=== PATIENT | male | born 1945 | race Caucasian/White ===

== ENCOUNTER → 2023-01-21 | Outpatient (REF) | payer MEDICARE, MEDICAID, OTHER ==
[~2023-01-21] MED LIST: ACET-907 PO; ALBU8.5H INH; ALLO300T2 PO; ATOR40TA75 PO; BISA10SU PR; BREO1INH INH; DOCU100C16 PO; FINA5TAB2 PO; FLAR0.1S OD; FLEEENE12 PR; FLOM0.4C39 PO; FURO40TA2 PO; GABA-282 PO; INSU100V13 SC; INSUHUMDS SC; IPRA0.00 INH; JARD1TAB PO; METF500T13 PO; MILKSUS3 PO; MIRA1POW3 PO; PANT40TA29 PO; REST0.05 OU; TRAZ1TAB10 PO; VITA100093 PO; XALA0.007 OU; [UNRECOGNIZED DRUG - CODE] PO; [UNRECOGNIZED DRUG - CODE] TOP
[2023-01-21 07:55] LABS: HEMATOCRIT 30.6 % (42.0-52.0); HEMOGLOBIN 9.4 g/dl (13.5-17.5); MEAN CORPUSCULAR HEMOGLOBIN 25.5 pg (27.0-33.0); MEAN CORPUSCULAR HGB CONC 30.7 g/dl (32.0-36.5); MEAN CORPUSCULAR VOLUME 83.2 fl (80.0-96.0); PLATELET COUNT, AUTOMATED 328 10^3/uL (150-450); RED BLOOD COUNT 3.68 10^6/uL (4.30-6.10); WHITE BLOOD COUNT 9.5 10^3/uL (4.0-10.0)
[2023-01-21 08:31] LABS: ALBUMIN 2.6 G/DL (3.2-5.2); ALKALINE PHOSPHATASE 256 U/L (46-116); ALT/SGPT 52 U/L (7.0-40); AST/SGOT 16 U/L (<34); BILIRUBIN,TOTAL 0.6 MG/DL (0.3-1.2); BLOOD UREA NITROGEN 19 MG/DL (9-23); CARBON DIOXIDE LEVEL 31 MMOL/L (20-31); CHLORIDE LEVEL 104 MMOL/L (98-107); CHOLESTEROL LEVEL 73 MG/DL (<200); CHOLESTEROL RISK RATIO 2.13 (<5); CREATININE FOR GFR 0.72 MG/DL (0.70-1.30); GLOMERULAR FILTRATION RATE > 60.0 (>42); GLUCOSE, FASTING 88 MG/DL (74-106); HDL CHOLESTEROL 34.2 MG/DL (>40); LDL CHOLESTEROL 29.2 MG/DL (<100); NON-HDL-C 38.8 MG/DL; POTASSIUM SERUM 3.8 MMOL/L (3.5-5.1); SODIUM LEVEL 139 MMOL/L (136-145); TOTAL PROTEIN 5.7 G/DL (5.7-8.2); TRIGLYCERIDES LEVEL 48 MG/DL (<150)
[2023-01-21 08:35] LABS: HEMOGLOBIN A1c 6.7 % (4.0-6.0)
== END ==
LOC: SKLAB2 07:00
PROVIDERS: ATTEND Internal Medicine
DX: E11.9 Type 2 diabetes mellitus without complications (principal)

== ENCOUNTER → 2023-01-27 | Outpatient (REF) | payer MEDICARE, MEDICAID ==
[~2023-01-27] MED LIST changes: +DOXY-444 PO; +LEVO1TAB40 PO; +PRED10TA2 PO; +PRED20TA PO
== END ==
LOC: SKLAB2 21:08
PROVIDERS: ATTEND Internal Medicine
DX: R09.89 Other specified symptoms and signs involving the circulatory and respiratory systems (principal); R05.9 Cough, unspecified; R06.2 Wheezing

== ENCOUNTER 2023-01-28 14:49 | Inpatient (IN) | payer MEDICAID, MEDICARE, OTHER ==
[~2023-01-28] VITALS: Ht 167.6 cm; Wt 127.2 kg
[2023-01-28 15:40] LABS: BASO # 0.1 10^3/uL (0.0-0.2); BASO % 0.7 % (0.0-1.0); EOS # 0.3 10^3/uL (0.0-0.5); EOS % 3.3 % (0.0-3.0); HEMATOCRIT 35.2 % (42.0-52.0); HEMOGLOBIN 10.6 g/dl (13.5-17.5); LYMPH # 1.6 10^3/uL (1.5-5.0); LYMPH % 18.5 % (24.0-44.0); MEAN CORPUSCULAR HEMOGLOBIN 25.1 pg (27.0-33.0); MEAN CORPUSCULAR HGB CONC 30.1 g/dl (32.0-36.5); MEAN CORPUSCULAR VOLUME 83.4 fl (80.0-96.0); MONO % 11.3 % (2.0-8.0); NEUTROPHILS # 5.5 10^3/uL (1.5-8.5); NEUTROPHILS % 65.4 % (36.0-66.0); PLATELET COUNT, AUTOMATED 411 10^3/uL (150-450); RED BLOOD COUNT 4.22 10^6/uL (4.30-6.10); WHITE BLOOD COUNT 8.4 10^3/uL (4.0-10.0)
[2023-01-28] MEDS ORDERED: methylPREDNISolone 125MG 2ML VIAL IV ONE (15:50)
[2023-01-28 15:52] LABS: VENOUS HCO3 34.9 MMOL/L (23.0-27.0); VENOUS O2 SATURATION 61.2 % (60.0-80.0); VENOUS PARTIAL PRESSURE CO2 66.4 mmHg (38.0-50.0); VENOUS PARTIAL PRESSURE O2 35.4 mmHg (30.0-50.0); VENOUS PH 7.338 UNITS (7.330-7.430); VENOUS STANDARD HCO3 30.1 MMOL/L; VENOUS TOTAL CO2 36.9 MMOL/L (24.0-28.0)
[2023-01-28] MEDS: IPRATROPIUM 0.5MG/ALBUTEROL 2.5MG INH SOL UD 3ML (DUONEB) NEB SCH ×3 (15:52→16:20)
[2023-01-28 16:00] LABS: ALBUMIN 2.7 G/DL (3.2-5.2); ALKALINE PHOSPHATASE 242 U/L (46-116); ALT/SGPT 25 U/L (7.0-40); AST/SGOT 30 U/L (<34); BILIRUBIN,DIRECT 0.2 MG/DL (<0.4); BILIRUBIN,TOTAL 0.4 MG/DL (0.3-1.2); BLOOD UREA NITROGEN 14 MG/DL (9-23); CALCIUM LEVEL 9.4 MG/DL (8.3-10.6); CARBON DIOXIDE LEVEL 34 MMOL/L (20-31); CHLORIDE LEVEL 101 MMOL/L (98-107); CREATININE FOR GFR 0.81 MG/DL (0.70-1.30); GLOMERULAR FILTRATION RATE > 60.0 (>42); GLUCOSE, FASTING 110 MG/DL (74-106); POTASSIUM SERUM 3.4 MMOL/L (3.5-5.1); SODIUM LEVEL 141 MMOL/L (136-145); TOTAL PROTEIN 6.8 G/DL (5.7-8.2)
[2023-01-28 16:03] LABS: THYROID STIMULATING HORMONE 0.586 uIU/ML (0.55-4.78)
[2023-01-28 16:06] LABS: ABG BASE EXCESS 6.2 (-2.0-2.0); ABG HCO3 32.6 MMOL/L (22.0-26.0); ABG O2 SATURATION 96.9 % (95.0-99.0); ABG PARTIAL PRESSURE CO2 56.2 mmHg (35.0-45.0); ABG PARTIAL PRESSURE O2 89.1 mmHg (75.0-100.0); ABG TOTAL CO2 34.3 MMOL/L (23.0-31.0); ABG pH (ARTERIAL) 7.381 UNITS (7.350-7.450)
[2023-01-28] MEDS ORDERED: LevoFLOXacin 750 MG TABLET PO ONE (18:20)
[2023-01-28] MEDS ORDERED: MED REC IN PROGRESS XX SCH (19:10)
[2023-01-28] MEDS ORDERED: POTASSIUM CHLORIDE 10MEQ SR TABLET PO ONE (20:05)
[2023-01-28] MEDS ORDERED: ACETAMINOPHEN TAB 650MG DOSE (2X325MG) PO PRN (20:05)
[2023-01-28] MEDS: LEVEMIR (INSULIN DETEMIR) 1 UNITS/0.01ML SC SCH (21:00)
[2023-01-28] MEDS: LATANOPROST 0.005% OPHTH SOLN 2.5 ML OU SCH (21:00)
[2023-01-28] MEDS ORDERED: ALLO300T2 PO (22:58)
[2023-01-28] MEDS ORDERED: BREO1INH INH (23:00)
[2023-01-28] MEDS ORDERED: ATOR40TA75 PO (23:00)
[2023-01-28] MEDS ORDERED: INSU100V13 SC (23:00)
[2023-01-28] MEDS ORDERED: JARD1TAB PO (23:00)
[2023-01-28] MEDS ORDERED: FINA5TAB2 PO (23:00)
[2023-01-28] MEDS ORDERED: MIRA1POW3 PO (23:03)
[2023-01-28] MEDS ORDERED: PANT40TA29 PO (23:03)
[2023-01-28] MEDS ORDERED: XALA0.007 OU (23:03)
[2023-01-28] MEDS ORDERED: IPRA0.00 INH (23:16)
[2023-01-28] MEDS ORDERED: MILKSUS3 PO (23:16)
[2023-01-28] MEDS ORDERED: FLEEENE12 PR (23:16)
[2023-01-28] MEDS ORDERED: GABA-282 PO (23:16)
[2023-01-28] MEDS ORDERED: METF500T13 PO (23:16)
[2023-01-28] MEDS ORDERED: INSUHUMDS SC (23:16)
[2023-01-28] MEDS ORDERED: ALBU8.5H INH (23:16)
[2023-01-28] MEDS ORDERED: [UNRECOGNIZED DRUG - CODE] TOP (23:16)
[2023-01-28] MEDS ORDERED: ACET-907 PO (23:16)
[2023-01-28] MEDS ORDERED: REST0.05 OU (23:16)
[2023-01-28] MEDS ORDERED: FLOM0.4C39 PO (23:16)
[2023-01-28] MEDS ORDERED: FLAR0.1S OD (23:16)
[2023-01-28] MEDS ORDERED: FURO40TA2 PO (23:16)
[2023-01-28] MEDS ORDERED: [UNRECOGNIZED DRUG - CODE] PO (23:16)
[2023-01-28] MEDS ORDERED: BISA10SU PR (23:16)
[2023-01-28] MEDS ORDERED: DOCU100C16 PO (23:16)
[2023-01-28] MEDS ORDERED: VITA100093 PO (23:16)
[2023-01-28] MEDS ORDERED: TRAZ1TAB10 PO (23:16)
[2023-01-28] MEDS ORDERED: HOME MED LIST COMPLETE! XX SCH (23:20)
[2023-01-28] MEDS ORDERED: BISACODYL 10MG SUPP PR PRN (23:45)
[2023-01-28] MEDS ORDERED: MOM 30ML SUSPENSION UDC PO PRN (23:45)
[2023-01-29] VITALS (7 sets, daily range): BP systolic 129–178; BP diastolic 60–84; TEMP 96.8–97.7; O2SAT 95–98
[2023-01-29] MEDS: ATORVASTATIN 20 MG TAB PO SCH ×2 (00:19→21:10)
[2023-01-29] MEDS: GABAPENTIN 300 MG CAP PO SCH ×3 (00:20→21:10)
[2023-01-29] MEDS: DOCUSATE SODIUM 100MG CAPSULE PO SCH ×3 (00:20→21:10)
[2023-01-29] MEDS ORDERED: TAMSULOSIN 0.4 MG CAP PO ONE (01:00)
[2023-01-29] MEDS ORDERED: FUROSEMIDE 40 MG TAB PO ONE (01:00)
[2023-01-29] MEDS: IPRATROPIUM 0.5MG/ALBUTEROL 2.5MG INH SOL UD 3ML (DUONEB) NEB SCH ×4 (02:09→20:23)
[2023-01-29] MEDS: methylPREDNISolone 40MG 1ML VIAL IV SCH ×2 (04:18→16:37)
[2023-01-29] MEDS ORDERED: hydrALAZINE 20MG/ML 1ML VIAL IV ONE (05:00)
[2023-01-29 06:52] LABS: HEMATOCRIT 36.7 % (42.0-52.0); MEAN CORPUSCULAR HEMOGLOBIN 24.8 pg (27.0-33.0); MEAN CORPUSCULAR VOLUME 82.8 fl (80.0-96.0); PLATELET COUNT, AUTOMATED 428 10^3/uL (150-450); RED BLOOD COUNT 4.43 10^6/uL (4.30-6.10); WHITE BLOOD COUNT 6.1 10^3/uL (4.0-10.0)
[2023-01-29 07:02] LABS: VENOUS BASE EXCESS 4.3 (-2.0-2.0); VENOUS HCO3 30.2 MMOL/L (23.0-27.0); VENOUS O2 SATURATION 97.8 % (60.0-80.0); VENOUS PARTIAL PRESSURE CO2 50.9 mmHg (38.0-50.0); VENOUS PARTIAL PRESSURE O2 103.1 mmHg (30.0-50.0); VENOUS PH 7.391 UNITS (7.330-7.430); VENOUS STANDARD HCO3 28.3 MMOL/L; VENOUS TOTAL CO2 31.8 MMOL/L (24.0-28.0)
[2023-01-29 07:08] LABS: ALBUMIN 2.8 G/DL (3.2-5.2); ALKALINE PHOSPHATASE 237 U/L (46-116); ALT/SGPT 13 U/L (7.0-40); AST/SGOT 21 U/L (<34); BILIRUBIN,TOTAL 0.5 MG/DL (0.3-1.2); BLOOD UREA NITROGEN 18 MG/DL (9-23); CALCIUM LEVEL 8.3 MG/DL (8.3-10.6); CARBON DIOXIDE LEVEL 34 MMOL/L (20-31); CHLORIDE LEVEL 103 MMOL/L (98-107); CREATININE FOR GFR 0.74 MG/DL (0.70-1.30); GLOMERULAR FILTRATION RATE > 60.0 (>42); GLUCOSE, FASTING 209 MG/DL (74-106); MAGNESIUM LEVEL 1.6 MG/DL (1.8-2.4); POTASSIUM SERUM 3.9 MMOL/L (3.5-5.1); SODIUM LEVEL 144 MMOL/L (136-145); TOTAL PROTEIN 6.8 G/DL (5.7-8.2)
[2023-01-29] MEDS: ADVAIR HFA 115/21MCG INHALER INH SCH ×2 (07:23→20:23)
[2023-01-29] MEDS: allopurinoL 300 MG TAB PO SCH (08:13)
[2023-01-29] MEDS: TAMSULOSIN 0.4 MG CAP PO SCH (08:13)
[2023-01-29] MEDS: PANTOPRAZOLE 40MG TAB (PROTONIX) PO SCH (08:13)
[2023-01-29] MEDS: FINASTERIDE 5MG TAB PO SCH (08:13)
[2023-01-29] MEDS: FUROSEMIDE 40 MG TAB PO SCH ×2 (08:13→16:37)
[2023-01-29] MEDS: ENOXAPARIN 40MG/0.4ML SYRINGE (J1650 PER 10MG) SC SCH (08:13)
[2023-01-29] MEDS: VITAMIN D 1,000 INTERNATIONAL UNITS TABLET PO SCH (08:13)
[2023-01-29] MEDS: MIRALAX *UNIT DOSE* 17GM PACKET PO SCH (09:00)
[2023-01-29] MEDS ORDERED: GLUCOSE 4GM CHEW TABLET PO PRN (09:40)
[2023-01-29] MEDS ORDERED: DEXTROSE 50% 50ML SYRINGE IV PRN (09:40)
[2023-01-29] MEDS ORDERED: GLUCAGON INJ 1MG VIAL SC PRN (09:40)
[2023-01-29] MEDS: INSULIN LISPRO (NovoLOG) PER UNIT SC SCH ×3 (12:59→21:11)
[2023-01-29] MEDS ORDERED: LevoFLOXacin IV 750 MG in IV 1 EA IV SCH (18:00)
[2023-01-29 18:08] LABS: C REACTIVE PROTEIN QUANTITATIV 16.7 MG/DL (<1.0)
[2023-01-29 18:21] LABS: PROCALCITONIN 0.18 ng/ml
[2023-01-29] MEDS: LATANOPROST 0.005% OPHTH SOLN 2.5 ML OU SCH (21:11)
[2023-01-29] MEDS: LEVEMIR (INSULIN DETEMIR) 1 UNITS/0.01ML SC SCH (21:11)
[2023-01-29] MEDS: traZODone 50 MG TAB PO SCH (21:48)
[2023-01-30] MEDS: IPRATROPIUM 0.5MG/ALBUTEROL 2.5MG INH SOL UD 3ML (DUONEB) NEB SCH ×4 (02:27→21:24)
[2023-01-30] MEDS: methylPREDNISolone 40MG 1ML VIAL IV SCH ×2 (05:03→17:23)
[2023-01-30 05:50] VITALS: BP 143/71; TEMP 97.5; O2SAT 93
[2023-01-30] MEDS: ADVAIR HFA 115/21MCG INHALER INH SCH ×2 (07:21→21:25)
[2023-01-30] MEDS: VITAMIN D 1,000 INTERNATIONAL UNITS TABLET PO SCH (08:24)
[2023-01-30] MEDS: ENOXAPARIN 40MG/0.4ML SYRINGE (J1650 PER 10MG) SC SCH (08:24)
[2023-01-30] MEDS: TAMSULOSIN 0.4 MG CAP PO SCH (08:24)
[2023-01-30] MEDS: FUROSEMIDE 40 MG TAB PO SCH ×2 (08:24→17:24)
[2023-01-30] MEDS: FINASTERIDE 5MG TAB PO SCH (08:24)
[2023-01-30] MEDS: allopurinoL 300 MG TAB PO SCH (08:24)
[2023-01-30] MEDS: INSULIN LISPRO (NovoLOG) PER UNIT SC SCH ×4 (08:25→21:00)
[2023-01-30] MEDS: MIRALAX *UNIT DOSE* 17GM PACKET PO SCH (08:25)
[2023-01-30] MEDS: DOCUSATE SODIUM 100MG CAPSULE PO SCH ×2 (08:25→22:07)
[2023-01-30] MEDS: GABAPENTIN 300 MG CAP PO SCH ×2 (08:25→22:06)
[2023-01-30] MEDS: PANTOPRAZOLE 40MG TAB (PROTONIX) PO SCH (08:25)
[2023-01-30 14:00] VITALS: BP 135/56; TEMP 97.9; O2SAT 95
[2023-01-30] MEDS: LevoFLOXacin 750 MG TABLET PO SCH (17:26)
[2023-01-30 20:00] VITALS: BP 154/74; TEMP 97.7; O2SAT 90
[2023-01-30] MEDS: LATANOPROST 0.005% OPHTH SOLN 2.5 ML OU SCH (22:06)
[2023-01-30] MEDS: ATORVASTATIN 20 MG TAB PO SCH (22:06)
[2023-01-30] MEDS: LEVEMIR (INSULIN DETEMIR) 1 UNITS/0.01ML SC SCH (22:06)
[2023-01-30] MEDS: traZODone 50 MG TAB PO SCH (22:07)
[2023-01-31] MEDS: IPRATROPIUM 0.5MG/ALBUTEROL 2.5MG INH SOL UD 3ML (DUONEB) NEB SCH (02:42)
[2023-01-31 04:00] VITALS: BP_DIAS 77
[2023-01-31] MEDS: methylPREDNISolone 40MG 1ML VIAL IV SCH (04:46)
[2023-01-31 06:27] VITALS: BP_SYST 176; TEMP 97.7; O2SAT 94
[2023-01-31] MEDS: LevoFLOXacin 750 MG TABLET PO SCH (06:35)
[2023-01-31] MEDS: ENOXAPARIN 40MG/0.4ML SYRINGE (J1650 PER 10MG) SC SCH (08:08)
[2023-01-31] MEDS: INSULIN LISPRO (NovoLOG) PER UNIT SC SCH (08:08)
[2023-01-31] MEDS: FUROSEMIDE 40 MG TAB PO SCH (08:09)
[2023-01-31] MEDS: PANTOPRAZOLE 40MG TAB (PROTONIX) PO SCH (08:09)
[2023-01-31] MEDS: allopurinoL 300 MG TAB PO SCH (08:09)
[2023-01-31] MEDS: GABAPENTIN 300 MG CAP PO SCH (08:09)
[2023-01-31] MEDS: VITAMIN D 1,000 INTERNATIONAL UNITS TABLET PO SCH (08:09)
[2023-01-31] MEDS: TAMSULOSIN 0.4 MG CAP PO SCH (08:09)
[2023-01-31] MEDS: FINASTERIDE 5MG TAB PO SCH (08:09)
[2023-01-31] MEDS: MIRALAX *UNIT DOSE* 17GM PACKET PO SCH (08:10)
[2023-01-31] MEDS: DOCUSATE SODIUM 100MG CAPSULE PO SCH (08:10)
[2023-01-31 08:12] VITALS: BP 116/61; O2SAT 94
[2023-01-31] MEDS ORDERED: PRED10TA2 PO (09:05)
[2023-01-31] MEDS ORDERED: DOXY-444 PO (09:05)
[2023-01-31] MEDS ORDERED: PRED20TA PO (09:05)
[2023-01-31] MEDS ORDERED: ALBU8.5H INH (09:05)
[2023-01-31] MEDS ORDERED: LEVO1TAB40 PO (09:05)
[2023-01-31 09:52] VITALS: O2SAT 91
== END 2023-01-31 10:00 | DRG 177 ==
LOC: M ED 14:49 → EDBD 14:49 → M ED INP 20:05 → M PCU 01-29 05:16 → M MS5PR 01-29 16:56
PROVIDERS: ADMIT Internal Medicine; ATTEND General Practice
DX: J15.6 Pneumonia due to other Gram-negative bacteria (principal); J96.01 Acute respiratory failure with hypoxia; J44.1 Chronic obstructive pulmonary disease with (acute) exacerbation; J44.0 Chronic obstructive pulmonary disease with (acute) lower respiratory infection; L97.909 Non-pressure chronic ulcer of unspecified part of unspecified lower leg with unspecified severity; Z68.42 Body mass index [BMI] 45.0-49.9, adult; I50.32 Chronic diastolic (congestive) heart failure; I11.0 Hypertensive heart disease with heart failure; M06.9 Rheumatoid arthritis, unspecified; E11.9 Type 2 diabetes mellitus without complications; D64.9 Anemia, unspecified; K21.9 Gastro-esophageal reflux disease without esophagitis; E78.5 Hyperlipidemia, unspecified; N40.0 Benign prostatic hyperplasia without lower urinary tract symptoms; M48.00 Spinal stenosis, site unspecified; H40.9 Unspecified glaucoma; E66.9 Obesity, unspecified; I87.2 Venous insufficiency (chronic) (peripheral); Z88.0 Allergy status to penicillin; Z91.040 Latex allergy status; Z88.8 Allergy status to other drugs, medicaments and biological substances; Z79.899 Other long term (current) drug therapy; Z79.4 Long term (current) use of insulin; Z87.891 Personal history of nicotine dependence